=== PATIENT | male | born 1995 | race Caucasian/White ===

== ENCOUNTER 2018-01-25 13:46 | Emergency (ER) | payer OTHER ==
[2018-01-25 14:17] VITALS: BP 110/55
--- NOTE | 2018-01-25 14:35 | UC ---
Head Injury HPI - HPI Summary HPI Summary: 22-year-old male comes to clinic today with a chief complaint of the head neck injury. This occurred yesterday. He was playing touch football with his friends when he got knocked to the ground. He said the primary point of impact was the upper shoulders but his neck did snap back and he hit his head on the ground. No loss of consciousness no change in vision or speech or weakness or numbness. He did say he had been drinking some alcohol at the time. After playing football he rested and then later on yesterday studied. This morning when he woke up he does have some neck pain which is more along the lateral aspects. Is not having a headache. He started studying for finals. He reports he feels slightly off. No confusion. He called [facility] and they were unable to see him and did recommend that he get evaluated by medical provider and he came here to urgent care. - History Of Current Complaint Chief Complaint: UCHeadInjury Stated Complaint: HEAD INJURY Time Seen by Provider: 01/25/18 14:18 Pain Intensity: 0 - Allergies/Home Medications Allergies/Adverse Reactions: Allergies Allergy/AdvReac Type Severity Reaction Status Date / Time ciprofloxacin Allergy Hives Verified 01/25/18 14:11 Home Medications: Home Medications Fluticasone NASAL SPRAY 50MCG* [Flonase NASAL SPRAY 50MCG*] 2 spray BOTH NARES ONCE 01/25/18 [History Confirmed 01/25/18] PMH/Surg Hx/FS Hx/Imm Hx Previously Healthy: Yes - Surgical History Surgical History: Yes Surgery Procedure, Year, and Place: 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 Negative: Blurred Vision, Diplopia ENT: Positive: Negative Respiratory: Positive: Negative Cardiovascular: Positive: Negative Gastrointestinal: Positive: Negative Motor: Positive: Negative Neurovascular: Positive: Decreased Sensation Musculoskeletal: Positive: Other: - see hpi Neurological: Positive: Other - see hpi Psychological: Positive: Negative Is Patient Immunocompromised?: No Physical Exam Triage Information Reviewed: Yes Appearance: Well-Appearing, No Pain Distress, Well-Nourished Vital Signs: Initial Vital Signs Temp 99.2 F 01/25/18 14:12 Pulse 73 01/25/18 14:12 Resp 16 01/25/18 14:12 BP 110/55 01/25/18 14:12 Pulse Ox 100 01/25/18 14:12 Vital Signs Reviewed: Yes Eye Exam: Normal Eyes: Positive: Conjunctiva Clear, Other: - PERRLA/EOMI ENT: Positive: TMs normal. Negative: Nasal drainage Neck exam: Normal Neck: Positive: Supple, Other: - Mild tenderness to palpation on the lateral aspects of the upper neck. No midline tenderness. Respiratory: Positive: Chest non-tender, Lungs clear, Normal breath sounds, No respiratory distress Cardiovascular: Positive: RRR Musculoskeletal Exam: Normal Musculoskeletal: Positive: Strength Intact, Other: - Patient's neck thoracic and lumbar spine is nontender to palpation. Neurological Exam: Normal Neurological: Positive: Alert, Muscle Tone Normal, Other: - GCS of 15. Patient' s arms and legs have full range of motion there is no difficulty with balance. Psychological Exam: Normal Psychological: Positive: Age Appropriate Behavior Skin Exam: Normal Head Injury Course/Dx - Course Course Of Treatment: At this time I don't find any obvious signs of concussion. We discussed concussion symptoms with the patient. Overall with a normal exam and no loss of consciousness at this time we will not be getting a head CT. Neck pain is more lateral aspects as not midline therefore no imaging at this time. I discussed with the patient's the signs and symptoms of concussion and that if he starts having any of the symptoms he needs to back off on his studying and get reevaluated at [facility] or by another medical provider. Overall he will go with symptomatic treatment otherwise. - Differential Dx/Diagnosis Provider Diagnosis: Head injury, Cervical strain Discharge - Sign-Out/Discharge Documenting (check all that apply): Patient Departure All imaging exams completed and their final reports reviewed: No Studies - Discharge Plan Condition: Stable Disposition: HOME Patient Education Materials: Head Injury (ED), Cervical Strain (ED) Referrals: [facility] [Provider Group] Additional Instructions: FOLLOW UP WITH [facility] IF NOT COMPLETELY IMPROVED. GET RECHECKED FOR ANY WORSENING OF YOUR CONDITION; WEAKNESS, NUMBNESS, DIFFICULTY WITH VISION, SPEECH OR CONCENTRATION, UNEXPLAINED VOMITING OR QUESTIONS OR CONCERNS. - Billing Disposition and Condition Condition: STABLE Disposition: Home
== END 2018-01-25 14:44 | disposition home or self-care (01) ==
LOC: UCEAST 13:46
DX: S09.90XA Unspecified injury of head, initial encounter (principal); S16.1XXA Strain of muscle, fascia and tendon at neck level, initial encounter; W18.30XA Fall on same level, unspecified, initial encounter; Y93.62 Activity, american flag or touch football; Y92.9 Unspecified place or not applicable; Z88.1 Allergy status to other antibiotic agents
CPT/HCPCS: 99211; G0463